=== PATIENT | female | born 1950 | race Caucasian/White ===

== ENCOUNTER → 2017-09-10 | Outpatient (CLI) | payer OTHER | LOC: ULTRA 11:43 → RAD 11:43 | DX: N63.10 Unspecified lump in the right breast, unspecified quadrant (principal); R92.8 Other abnormal and inconclusive findings on diagnostic imaging of breast ==

== ENCOUNTER → 2017-09-12 | Outpatient (CLI) | payer OTHER | END | disposition home or self-care (01) | LOC: BC 04:14 | DX: N60.91 Unspecified benign mammary dysplasia of right breast (principal); N60.11 Diffuse cystic mastopathy of right breast; R92.1 Mammographic calcification found on diagnostic imaging of breast ==